=== PATIENT | female | born 1975 | race Two or more races ===

== ENCOUNTER 2016-07-22 07:44 | Emergency (ER) | payer OTHER ==
[~2016-07-22] VITALS: Ht 172.7 cm; Wt 88.6 kg
[~2016-07-22 07:44] MED LIST: CYCL5TAB PO; LAMO100T2 PO; PALI273S IM
[2016-07-22 07:49] VITALS: BP 120/78; PULSE 88; RESP 10; O2SAT 98
--- NOTE | 2016-07-22 07:53 | ED.REPORT ---
HPI-General Illness Date of Service Jul 22, 2016 ED Provider: Eder Brown MD 40 year old female with a remote history of a MS probably related to cocaine use at age 31 and current IV heroin use who presents to the ER due to intermittent bilateral lower extremity swelling up to the thighs for 1 month. The swelling has improved with rest and elevation. Pt has no history of similar symptoms. She now reports bilat leg weakness. Pt endorses some orthopnea and PND , without SOB at rest. She also had 5 minutes of chest pain 2 days ago that resolved spontaneously. Additionally, the patient reports redness and swelling to her lower extremities. Pt was seen by her PCP 1.5 weeks ago. She reported that she had these symptoms, but did not have these symptoms at the time of the visit. She had a normal lab workup aside from an elevated BNP per patient. Nursing Notes Stated Complaint: SWELLING Chief Complaint: General Complaint Nursing Notes Reviewed: Yes Allergies: Coded Allergies: No Known Allergies (Verified , 05/02/16) Scheduled Buprenorphine HCl/Naloxone HCl (Suboxone 8 mg-2 mg Sl Film) 1 Each Film 2 EACH SL DAILY Furosemide (Lasix) 20 Mg Tablet 20 MG PO DAILY Lamotrigine (Lamotrigine) 100 Mg Tablet 100 MG PO DAILY Paliperidone Palmitate (Invega Trinza) 273 Mg/0.875 Ml Syringe 273 MG IM ONCE Sulfamethoxazole/Trimeth 800-160 mg (Bactrim DS) 1 Each Tablet 1 TABLET PO BID Scheduled PRN Cyclobenzaprine (Cyclobenzaprine) 5 Mg Tablet 5 MG PO HS PRN PRN Spasm General Time Seen by MD: 07:53 Chief Complaint Other (Lower extremity edema) Hx Obtained From: Patient Arrived By: Walk-in Sudden in Onset?: No Onset Occurred: More than a week ago... Symptom Duration: Intermittent Location: : Leg left: Leg right Quality: Painful Severity: Current: Moderate Associated with: Reports: Rash, Denies: Fever Past Medical History Past Medical History Depression, anxiety, Remote Hx of MS IV heroin, cocaine use Past Surgical History coccyx removed Reports: , Tonsillectomy Family History Noncontributory Smoking History Current Every Day Smoker Social History Alcohol Use: Denies alcohol use Drug Use: IV drugs Other Social History: Local resident Occupation unemployed Ambulatory Status Independent Review of Systems Full Review of Systems Constitutional: Reports: Weakness - generalized, Denies: Fever Respiratory: Denies: Non-productive cough Cardiovascular: Reports: Chest pain, Edema, Orthopnea, Parox nocturnal dyspnea Musculoskeletal: Reports: Extremity pain, Extremity swelling Skin: Reports Rash Complete sys rev & neg: except as marked. Physical Exam Vital Signs Vital Signs Date Time Temp Pulse Resp B/P Pulse Ox O2 Delivery O2 Flow Rate FiO2 07/22/16 07:49 36.2 88 10 120/78 98 Room Air Initial VS: Reviewed, Vital signs normal General/Constitutional: Well-developed, Well-nourished Head / Eyes: Atraumatic, Normocephalic, PERRL ENT: Conjunctiva normal, No scleral icterus Neck: Full range of motion Respiratory: Breath sounds normal (No rales. ), Clear to auscultation, No respiratory distress Cardiovascular: Regular rate & rhythm, Heart sounds normal, Intact distal pulses Abdomen / GI: Soft, Non-tender, No guarding, No rebound, No distention Skin: Warm, Dry, No cyanosis Neurologic: Alert, Oriented, Nonfocal Psychiatric: Mood/affect normal, Behavior normal, Normal thought content Respiratory / Chest: Breath sounds NL, Breath sounds = bilat, No respiratory distress, No rales, No rhonchi, No wheezing Lower Extremity / Pelvis / MS: Vascular intact Significant peripheral edema up to the knees. Minimal weeping. Cellulitis with firm nodules and warmth on the posteriolateral lower thigh on the R and Lateral calf on R. Interpretation & Diagnostics Lab Results Interpretation Result Diagram: 07/22/16 0850 07/22/16 0850 Test 07/22/16 08:50 White Blood Count 6.5th/mm3 (3.8-10.1) Red Blood Count 3.84mil/mm3 (3.90-5.20) Hemoglobin 11.3g/dL (12.0-15.6) Hematocrit 33.9% (35.0-46.0) Mean Corpuscular Volume 88.3fL (81-100) Mean Corpuscular Hemoglobin 29.4pg (27.0-35.0) Mean Corpuscular Hemoglobin Concent 33.3% (32.0-37.0) Red Cell Distribution Width 14.0% (12.3-15.4) Platelet Count mickey/L (150-400) Neutrophils (%) (Auto) 59.9% (40-74) Lymphocytes (%) (Auto) 29.9% (14-46) Monocytes (%) (Auto) 6.0% (4-12) Eosinophils (%) (Auto) 3.3% (0-5) Basophils (%) (Auto) 0.3% (0-3) Sodium Level 136mEq/L (134-144) Potassium Level 4.3mEq/L (3.5-5.2) Chloride Level 98mEq/L (97-108) Carbon Dioxide Level 22mmol/L (18-29) Blood Urea Nitrogen 11mg/dL (6-20) Creatinine 0.58mg/dL (0.57-1.00) Estimat Glomerular Filtration Rate 167mL/min (>59) Glucose Level 111mg/dL (60-99) Calcium Level 9.1mg/dL (8.5-10.1) Total Bilirubin 0.2mg/dL (0.0-1.2) Aspartate Amino Transf (AST/SGOT) 16U/L (0-50) Alanine Aminotransferase (ALT/SGPT) 12U/L (0-32) Alkaline Phosphatase 71U/L (25-150) Pro-B-Type Natriuretic Peptide 92.97pg/mL (0-130) Total Protein 7.0g/dL (6.4-8.4) Albumin 4.1g/dL (3.4-5.0) Re-Eval/Medical Decision Time of Eval: 10:13 Re-Evaluation/Progress Note: Discussed plan for discharge and follow up. All questions addressed. Counseled Regarding: Diagnosis, Lab results, Need for follow-up, When/why to return to ED Discharge & Departure Primary Impression: Cellulitis Site of cellulitis: extremity Site of cellulitis of extremity: lower extremity Laterality: unspecified laterality Qualified Code: L03.119 - Cellulitis of unspecified part of limb Additional Impressions: Peripheral edema Opioid dependence Substance use status: uncomplicated Qualified Code: F11.20 - Opioid dependence, uncomplicated Disposition: Home Discharge Condition All VS Reviewed: Yes Condition: Improved Patient Instructions: Buprenorphine/Naloxone (By mouth), Cellulitis (ED) Additional Instructions: For the infection in your leg, please take the antibiotic, Bactrim, daily for 10 days. Elevate your legs as much as you can as well and take the diuretic ( furosemide) as directed. You will need to call Dr. Sánchez on Sunday to schedule a follow up appointment. Make sure that she is aware of your visit today. Until then take the diuretic as directed for 4 days. For withdrawal, you can take 2 strips of Suboxone daily for 5 days. Use the COWS score sheet to add up your symptoms. Do not take this medication until your score is between 15-20 or higher. Call Shabnam Lewis on Sunday to schedule an appointment in the next couple of days. Referrals: Shoshana Sánchez MD (PCP) [facility] Scribe Attestation Portions of this note were transcribed by Martha Sanz. I, (Dr. Brown) personally performed the history, physical exam and medical decision-making; I reviewed and confirmed the accuracy of the information in the transcribed note. Signed by: Martha Sanz. [place], 07/22/2016, 1013 copies to: Shoshana Sánchez MD ; [employer] [employer] Eder Brown MD Jul 22, 2016 07:53 Martha Sanz Jul 22, 2016 08:02 Martha Sanz Jul 22, 2016 08:02
[2016-07-22] MEDS ORDERED: Trimethoprim-Sulfa 160 mg-800 mg Tablet PO ONE (08:30)
[2016-07-22] MEDS ORDERED: SULF1TAB7 PO (09:35)
[2016-07-22] MEDS ORDERED: BUPR1FIL3 SL (09:35)
[2016-07-22 09:48] LABS: BASOPHILS % (AUTO) 0.3 % (0-3); EOSINOPHILS % (AUTO) 3.3 % (0-5); Mean Corpuscular Hemoglobin 29.4 pg (27.0-35.0); Mean Corpuscular Volume 88.3 fL (81-100); NEUTROPHILS % (AUTO) 59.9 % (40-74)
[2016-07-22] MEDS ORDERED: FURO-129 PO (10:13)
== END 2016-07-22 10:28 | disposition home or self-care (01) ==
LOC: SED 07:44
DX: L03.115 Cellulitis of right lower limb (principal); F11.20 Opioid dependence, uncomplicated; R60.0 Localized edema; R53.1 Weakness; R06.01 Orthopnea; I25.2 Old myocardial infarction; F17.200 Nicotine dependence, unspecified, uncomplicated